=== PATIENT | male | born 1955 | race Caucasian/White ===

== ENCOUNTER 2021-05-23 06:31 | Day surgery (SDC) | payer MEDICARE, BC ==
[~2021-05-23] VITALS: Ht 172.7 cm; Wt 125.0 kg
[~2021-05-23 06:31] MED LIST: CARVEDILOL12.5 MG PO; CARVEDILOL6.25 MG PO; CENTRUM ULTRA1 EAC1 PO; COLCRYS0.6 MG PO; HYDRALAZINE HCL25 MG PO; JANTOVEN5 MG; KRILL OIL 1,001 EAC1 PO; LOSARTAN POTAS100 MG PO; MAGNESIUM400 M1 PO; PREDNISONE20 MG PO; ROSUVASTATIN CA20 MG PO; ULORIC40 MG PO; ULORIC80 MG PO; VITAMIN D3250 MCG PO; WARFARIN SODIUM5 MG PO; ZINC50 MG PO
--- NOTE | 2021-05-23 09:31 | NUR ---
05/23/21 0931 Aurelia Byers 0817 PT ARRIVED IN PACU NON RESPONSIVE TO NOXIOUS STIMULI. ABD SOFT AND PASSING FLATUS. 0830 REACTIVE. RESTING. 0840 SITTING UP IN BED SIPPING ON WATER. AT BEDSIDE. 0850 DC INSTRUCTIONS GIVEN. ALL QUESTIONS ANSWERED.
--- NOTE | 2021-05-23 10:51 | NUR ---
PT ALERT, ORIENTED AND SUPPORTED BY HIS TRUMAN. PT HERE FOR HIS FIRST SCOPE-ALL QUESTIONS ASKED ANSWERED. PT REQUESTED PRAYER, WILL FOLLOW NEEDED
--- NOTE | 2021-05-23 14:44 | OR ---
[facility] [address], [place] [address] Signed DATE OF OPERATION: 05/23/2021 SURGEON: Sean German MD PREOPERATIVE DIAGNOSIS: Positive Cologuard test in October 2020. POSTOPERATIVE DIAGNOSIS: Adenomatous polyps x3, hyperplastic polyps x2. PROCEDURES: Total colonoscopy to cecum with cold snare polypectomy x3 and cold morcellation polypectomy x2. ANESTHESIA: Propofol infusion; Breanna Sneed CRNA INDICATIONS: This 65-year-old white man is a patient of Dr. Brayden Dewitt. He has numerous medical problems. He underwent a Cologuard test in October of 2020. He has no family history of colon cancer that he is aware of. He has no symptoms of bleeding, diarrhea, or constipation. Given his positive Cologuard test, colonoscopy has been recommended. The risks of bleeding, infection, and perforation related to colonoscopy was reviewed with him, he understands and wished to proceed. FINDINGS: The prep was excellent. Complete colonoscopy was undertaken to the cecum without question. Intubation of the ileum was accomplished as well, it was normal. He had five polyps in total, three were adenomatous, two hyperplastic, all excised completely. DESCRIPTION OF PROCEDURE: The patient was brought to the endoscopy suite and placed in lateral decubitus position, given intravenous sedation with propofol infusional technique by the computer hardware designer. Digital rectal examination was normal. An Olympus video colonoscope was passed in the rectum and manipulated throughout the colon, ultimately intubating the cecum, ileocecal valve and appendiceal orifice were normal. The scope was able to intubate the ileum without problem, it was passed several centimeters showing no sign of abnormality. The scope was withdrawn. Cecum well visualized and photographed. The scope was withdrawn. In the mid ascending colon, Electronically Signed By: SEAN GERMAN MD 05/23/21 1444 PATIENT NAME: JAIME MEZA OPERATIVE REPORT DATE OF : 55 REPORT #: [id number] PHYSICIAN: SEAN GERMAN MD PCP: BRAYDEN DEWITT MD REPORT IS CONFIDENTIAL AND NOT TO BE RELEASED WITHOUT AUTHORIZATION [facility] [address], [place] [address] Signed there was an adenomatous appearing-polyp, which was sessile. This was excised with cold snare technique and extracted and passed for pathology. The scope was further withdrawn into the proximal descending colon, another similar such adenomatous polyp was noted, it too was excised with cold morcellation technique and removed. Further withdrawal showed no abnormality into the rectosigmoid, where there were two small hyperplastic polyps, these were excised with cold morcellation technique. Additional withdrawal showed an adenomatous polyp in the low rectum, this was excised with cold snare technique. Retroflexed view was otherwise normal. Scope was removed, and the patient was taken to the recovery room in good condition. CONCLUDING DIAGNOSIS: Adenomatous polyps x3 and hyperplastic polyps x2. PLAN: Recommend repeat colonoscopy in 3-5 years or sooner if symptoms should occur. MD PATY Villa/NERIS /[id number] Copies: ~ Electronically Signed By: SEAN GERMAN MD 05/23/21 1444 PATIENT NAME: DERRICKJAIME ROSIE OPERATIVE REPORT DATE OF : 55 REPORT #: [id number] PHYSICIAN: SEAN GERMAN MD PCP: BRAYDEN DEWITT MD REPORT IS CONFIDENTIAL AND NOT TO BE RELEASED WITHOUT AUTHORIZATION
--- NOTE | 2021-05-24 12:47 | PATH ---
[facility] [address], [place] [address] Signed SPECIMEN(S): A ASCENDING/RIGHT COLON POLYP SPECIMEN(S): B DESCENDING/LEFT COLON POLYP SPECIMEN(S): C SIGMOID RECTAL POLYP X2 SPECIMEN(S): D RECTAL POLYP SPECIMEN SOURCE: A. ASCENDING/RIGHT COLON POLYP B. DESCENDING/LEFT COLON POLYP C. SIGMOID RECTAL POLYP X2 D. RECTAL POLYP CLINICAL HISTORY: Positive Cologuard. Post-op: Polyps x4. MICROSCOPIC DESCRIPTION: Histologic sections of all submitted blocks are examined by light microscopy. These findings, together with the gross examination, support the pathologic diagnosis. FINAL PATHOLOGIC DIAGNOSIS: A. Colon, ascending/right, polypectomy: - Tubular adenoma. B. Colon, descending/left, polypectomy: - Tubular adenoma. C. Colon, rectosigmoid, polypectomies: - Hyperplastic polyps (2). D. Designated "rectal polyp": - Non-diagnostic; scant tissue did not survive processing. BRP:cml:[id number] GROSS DESCRIPTION: Four specimens are received in four containers labeled with "VE". A. The specimen, labeled "VE, 1," and designated on the requisition "ascending/right colon polypectomy," is received in formalin and consists of one fragment of pink-cohn tissue (0.4 cm in greatest dimension). The specimen is submitted entirely in cassette A1. B. The specimen, labeled "VE, 2," and designated on the requisition "descending/left colon polypectomy," is received in formalin and consists of two fragments of pink-cohn tissue (0.3 to 0.4 cm in greatest dimension). The specimen is submitted entirely in cassette B1. C. The specimen, labeled "VE, 3," and designated on the requisition "rectosigmoid polypectomy 2," is received in formalin and consists of two PATIENT NAME: JAIME MEZA PATHOLOGY DATE OF : 55 REPORT #: [id number] PHYSICIAN: [facility] PCP: BRAYDEN DEWITT MD REPORT IS CONFIDENTIAL AND NOT TO BE RELEASED WITHOUT AUTHORIZATION [facility] [address], [place] [address] Signed fragments of pink-cohn tissue (0.2 to 0.3 cm in greatest dimension). The specimen is submitted entirely in cassette C1. D. The specimen, labeled "VE, 4," and designated on the requisition "rectum polypectomy," is received in formalin and consists of one fragment of pink-cohn tissue (0.2 cm in greatest dimension). The specimen is submitted entirely in cassette D1. AC (under the direct supervision of a pathologist) The Gross Description was prepared using a voice recognition system. The report was reviewed for accuracy; however, sound-alike word errors, addition and/or deletions may occur. If there is any question about this report, please contact Client Services. PERFORMING LABORATORY: The technical component was performed by [facility], [address] [place] [id number] ([employer] Integration Specialist: Mackenzie Maria MD; CLIA# [id number]). Professional interpretation was performed by [facility], [facility], [address] [place] [id number] (CLIA# [id number]). Diagnostician: Don Fang MD Pathologist Electronically Signed 05/24/2021 Copies: ~ PATIENT NAME: JAIME MEZA PATHOLOGY DATE OF : 55 REPORT #: [id number] PHYSICIAN: [facility] PCP: BRAYDEN DEWITT MD REPORT IS CONFIDENTIAL AND NOT TO BE RELEASED WITHOUT AUTHORIZATION
== END 2021-05-23 08:55 | disposition home or self-care (01) ==
LOC: OPS 06:31 → DS 06:31 → OPS 06:45 → DS 06:45 → OPS 08:55
PROVIDERS: ATTEND Surgery
PROC: 0DBN8ZX Excision of Sigmoid Colon, Via Natural or Artificial Opening Endoscopic, Diagnostic (ICD-10-PCS; 2021-05-23)
PROC: 0DBP8ZX Excision of Rectum, Via Natural or Artificial Opening Endoscopic, Diagnostic (ICD-10-PCS; 2021-05-23)
PROC: 0DBM8ZX Excision of Descending Colon, Via Natural or Artificial Opening Endoscopic, Diagnostic (ICD-10-PCS; 2021-05-23)
PROC: 0DBK8ZX Excision of Ascending Colon, Via Natural or Artificial Opening Endoscopic, Diagnostic (ICD-10-PCS; principal; 2021-05-23 06:45)
DX: D12.2 Benign neoplasm of ascending colon (principal); D12.4 Benign neoplasm of descending colon; I48.91 Unspecified atrial fibrillation; I10 Essential (primary) hypertension; M10.9 Gout, unspecified; E66.01 Morbid (severe) obesity due to excess calories; G47.33 Obstructive sleep apnea (adult) (pediatric); E78.00 Pure hypercholesterolemia, unspecified; Z87.81 Personal history of (healed) traumatic fracture; Z68.41 Body mass index [BMI] 40.0-44.9, adult; Z79.01 Long term (current) use of anticoagulants
CPT/HCPCS: J2001; J2250; J2704; J3010

== ENCOUNTER 2024-05-03 09:56 | Emergency (ER) | payer MEDICARE, BC ==
[~2024-05-03] VITALS: Ht 172.7 cm; Wt 113.4 kg
[2024-05-03] MEDS ORDERED: ELIQUIS5 MG PO (13:00)
[2024-05-03] MEDS ORDERED: diphenhydrAMINE HCL 50 MG CAP PO ONE (13:45)
[2024-05-03] MEDS ORDERED: TRIMETHOPRIM/SULFAMETHOXAZOLE 1 EA TAB PO ONE (13:45)
[2024-05-03] MEDS ORDERED: predniSONE 20 MG TAB PO ONE (13:45)
[2024-05-03] MEDS ORDERED: clindamycin HCL 300 MG CAP PO ONE (13:45)
[2024-05-03 14:29] VITALS: BP 169/111
[2024-05-03] MEDS ORDERED: CLINDAMYCIN HC150 MG PO (14:31)
[2024-05-03] MEDS ORDERED: PREDNISONE20 MG PO (14:31)
[2024-05-03] MEDS ORDERED: BACTRIM DS TAB1 EACH PO (14:31)
== END 2024-05-03 14:38 | disposition home or self-care (01) ==
LOC: ED 09:56
DX: L25.9 Unspecified contact dermatitis, unspecified cause (principal); L03.312 Cellulitis of back [any part except buttock and flank]; I10 Essential (primary) hypertension; I48.91 Unspecified atrial fibrillation; Z88.0 Allergy status to penicillin; Z88.8 Allergy status to other drugs, medicaments and biological substances; Z79.01 Long term (current) use of anticoagulants; Z79.899 Other long term (current) drug therapy
CPT/HCPCS: 99282; A9270; J7512; Q0163